=== PATIENT | female | born 1955 | race Caucasian/White ===

== ENCOUNTER 2016-08-19 15:09 | Emergency (ER) | payer OTHER | END 2016-08-19 15:58 | disposition home or self-care (01) | LOC: SED 15:09 | DX: S52.501A Unspecified fracture of the lower end of right radius, initial encounter for closed fracture (principal); S52.614A Nondisplaced fracture of right ulna styloid process, initial encounter for closed fracture; E11.9 Type 2 diabetes mellitus without complications; F17.200 Nicotine dependence, unspecified, uncomplicated; W18.30XA Fall on same level, unspecified, initial encounter; Y92.009 Unspecified place in unspecified non-institutional (private) residence as the place of occurrence of the external cause | CPT/HCPCS: 29125; 99283 ==

== ENCOUNTER → 2016-08-19 | Outpatient (CLI) | payer OTHER ==
[~2016-08-19] MED LIST: ACETAMINOPHEN PO; ADVIL200 M2; AMARYL2 MG PO; AMOXICILLIN875 MG PO; GLUCOPHAGE500 M1 PO; LANTUS100 U/ML SQ; METFORMIN PO; MOBIC PO; NAPROSYN375 MG; SIMVASTATIN20 MG PO; ZOLOFT50 MG PO; [UNRECOGNIZED DRUG - SUPPLY]
--- NOTE | ~2016-08-19 | CR281 ---
[facility]. [facility] A Service of [facility] RADIOLOGY TEXT RESULTS PATIENT: LENA DAVIS LOCATION: [facility] : 57 UNIT #: [id number] AGE: [address]: Robb Rod MD SEX: F ORDER DR: [id number] [place] [id number] O MR#: [id number] Acc #: [id number] NAME: LENA DAVIS : 1955 SEX: F STUDY DATE/TIME: 08/19/2016 10:31 UNIT: [facility] ROOM: STUDY DESCRIPTION: CR Wrist Min 3 View Lt Attending Physician: Robb Rod M.D. Referring Physician: Robb Rod M.D. Ordering Physician: Robb Rod M.D. Primary Care Physician: Robb Rod M.D. MEDICAL IMAGING REPORT This report is preliminary unless electronic signature is present. EXAM Left wrist series, 08/19/2016. HISTORY 60-year-old female complaining of bilateral wrist pain, greater on the right, following injury 4-5 days ago. TECHNIQUE Three-view left wrist series. FINDINGS The examination is negative. No visible fracture, dislocation, or other osseous abnormality. IMPRESSION Negative left wrist series. Dictated by... Robb Deluca M.D. THIS IS AN ELECTRONICALLY VERIFIED REPORT Robb Deluca M.D. at 08/19/2016 1:32 PM RGW/yareli TD: 08/19/2016 11:46 JOB #: [id number] MEDICAL IMAGING REPORT Page 1 of 1
--- NOTE | ~2016-08-19 | CR282 ---
[facility] A Service of [facility] RADIOLOGY TEXT RESULTS PATIENT: LENA DAVIS LOCATION: [facility] : 57 UNIT #: [id number] AGE: [address]: Robb Rod MD SEX: F ORDER DR: [id number] [place] [id number] O MR#: [id number] Acc #: [id number] NAME: LENA DAVIS : 1955 SEX: F STUDY DATE/TIME: 08/19/2016 10:31 UNIT: [facility] ROOM: STUDY DESCRIPTION: CR Wrist Min 3 View Rt Attending Physician: Robb Rod M.D. Referring Physician: Robb Rod M.D. Ordering Physician: Robb Rod M.D. Primary Care Physician: Robb Rod M.D. MEDICAL IMAGING REPORT This report is preliminary unless electronic signature is present. EXAM Right wrist series 08/19/2016 HISTORY 60-year-old female complaining of bilateral wrist pain after injury 4-5 days ago. TECHNIQUE 3 view right wrist series. FINDINGS There is an acute, nondisplaced, intraarticular fracture extending transversely across the distal radius at the level of the radioulnar articulation and distally to the radial articular surface. There is also a nondisplaced ulnar styloid fracture. Soft tissue swelling. No carpal wrist fracture is seen. IMPRESSION 1. Nondisplaced intraarticular fracture of the distal radius. 2. Nondisplaced ulnar styloid fracture. STAT * RESULT Dictated by... Robb Deluca M.D. THIS IS AN ELECTRONICALLY VERIFIED REPORT Robb Deluca M.D. at 08/19/2016 1:32 PM CASEY/gali [facility] A Service of [facility] RADIOLOGY TEXT RESULTS PATIENT: LENA DAVIS LOCATION: [facility] : 57 UNIT #: [id number] AGE: [address]: Robb Rod MD SEX: F ORDER DR: TD: 08/19/2016 11:09 JOB #: [id number] MEDICAL IMAGING REPORT Page 1 of 1
== END | disposition home or self-care (01) ==
LOC: SRAD 10:17
DX: M25.531 Pain in right wrist (principal); M25.532 Pain in left wrist; S52.571A Other intraarticular fracture of lower end of right radius, initial encounter for closed fracture; S52.614A Nondisplaced fracture of right ulna styloid process, initial encounter for closed fracture
CPT/HCPCS: 73110